=== PATIENT | male | born 1985 | race Caucasian/White ===

== ENCOUNTER 2016-12-31 20:06 | Emergency (ER) | payer BC ==
--- NOTE | 2016-12-31 20:35 | EDM.PDOC ---
ED HPI ENT - General Chief Complaint: ENT Problem Stated Complaint: PAIN IN MOUTH Time Seen by Provider: 12/31/16 20:32 - History of Present Illness INITIAL COMMENTS - FREE TEXT/NARRATIVE: 31-year-old male presents emergency room with dental pain. The patient's been seen his dentist he has 2 cavities and another tooth that needs a root canal he has significant discomfort especially in the right side of his jaw and face patient was started on amoxicillin 500 mg 3 times a day on . He has not noticed any improvement with this he is using ibuprofen 400 mg as needed this might help a little bit he has hydrocodone and this was working but is no longer working however he uses it intermittently. Patient denies any fevers or chills he's not aware of any active drainage. The patient is scheduled for a root canal on the of this month. - Related Data Allergies/ADRs: Allergies Allergy/AdvReac Type Severity Reaction Status Date / Time No Known Allergies Allergy Verified 12/31/16 20:15 Home Meds: Home Meds Amoxicillin 1,000 mg PO BID #28 capsule 12/31/16 [Rx] Past Medical History - Past Health History Medical/Surgical History: Denies Medical/Surgical History Social & Family History - Tobacco Use Smoking Status *Q: Never Smoker - Caffeine Use Caffeine Use: Reports: None - Recreational Drug Use Recreational Drug Use: No ED ROS ENT - Review of Systems Review Of Systems: See Below Constitutional: Reports: no symptoms Respiratory: Reports: No Symptoms Cardiovascular: Reports: No symptoms Endocrine: Reports: no symptoms ED EXAM, ENT - Physical Exam Exam: See Below Exam Limited By: No limitations General Appearance: alert, no apparent distress Ears: normal external exam, normal canal, hearing grossly normal, normal TMs Nose: normal inspection, normal mucousa, no blood Mouth/Throat: Other (His right upper tooth is the most bothersome he has mild erythema around the gumline he has a couple other cavities in his upper teeth no significant gum changes noted there no drainage noted.) Head: atraumatic, normocephalic Neck: normal inspection, supple, non-tender, full range of motion. No: lymphadenopathy (L), lymphadenopathy (R) Respiratory/Chest: no respiratory distress, lungs clear Cardiovascular: regular rate, rhythm, no edema, no murmur Course - Vital Signs Last Recorded V/S: Last Vital Signs Temp 36.6 C 12/31/16 20:15 Pulse 63 12/31/16 20:15 Resp 16 12/31/16 20:15 BP 132/92 H 12/31/16 20:15 Pulse Ox 99 12/31/16 20:15 Departure - Departure Time of Disposition: 20:52 Disposition: Home, Self-Care 01 Clinical Impression: Dental caries Prescriptions: Amoxicillin 1,000 mg PO BID #28 capsule Referrals: PCP,None [Primary Care Provider] - Forms: ED Department Discharge Additional Instructions: Return to the emergency room with any questions or problems. Followup with your dentist on Sunday if not significantly better. At this point we going to increase her amoxicillin 500 mg 3 times a day to 1000 mg twice daily. Continue this regimen until you are out of your older prescription and your new her prescription. Use your [place] as needed for pain one or 2 tablets every 4 hours. Allow 12 hours after using this medication he for driving or returning to work. Increase your ibuprofen to 800 mg 3 times a day, be sure to take with meals 800 mg can be achieved by taking 4 of the 200 mg [id number] tablets. Followup with your dentist as directed. Followup for the root canal as scheduled
== END 2016-12-31 21:02 | disposition home or self-care (01) ==
LOC: JD.ED 20:06
DX: K02.9 Dental caries, unspecified (principal)
CPT/HCPCS: 99282; 99283